=== PATIENT | female | born 1965 | race Caucasian/White ===

== ENCOUNTER → 2021-08-14 14:31 | Outpatient (CLI) | payer OTHER, SELFPAY | PROVIDERS: PCP Family Medicine; Referring Provider Dermatology MOHS-Micrographic Surgery; Visit Provider Family Medicine | DX: T81.89XA Other complications of procedures, not elsewhere classified, initial encounter (principal); S81.801A Unspecified open wound, right lower leg, initial encounter; E11.628 Type 2 diabetes mellitus with other skin complications; Z79.84 Long term (current) use of oral hypoglycemic drugs; Z85.828 Personal history of other malignant neoplasm of skin | CPT/HCPCS: 11042; 93922; 99204; 99213 ==

== ENCOUNTER → 2021-08-21 14:37 | Outpatient (CLI) | payer OTHER, SELFPAY | PROVIDERS: PCP Family Medicine; Referring Provider Family Medicine; Visit Provider Family Medicine | DX: T81.89XA Other complications of procedures, not elsewhere classified, initial encounter (principal); S81.801A Unspecified open wound, right lower leg, initial encounter; E11.628 Type 2 diabetes mellitus with other skin complications; Z85.828 Personal history of other malignant neoplasm of skin | CPT/HCPCS: 11042 ==

== ENCOUNTER → 2021-08-28 14:40 | Outpatient (CLI) | payer OTHER, SELFPAY | PROVIDERS: PCP Family Medicine; Referring Provider Family Medicine; Visit Provider Family Medicine | DX: T81.89XA Other complications of procedures, not elsewhere classified, initial encounter (principal); S81.801A Unspecified open wound, right lower leg, initial encounter; E11.628 Type 2 diabetes mellitus with other skin complications; Z85.828 Personal history of other malignant neoplasm of skin; Z79.84 Long term (current) use of oral hypoglycemic drugs | CPT/HCPCS: 11042 ==

== ENCOUNTER → 2021-09-04 15:45 | Outpatient (CLI) | payer OTHER, SELFPAY | PROVIDERS: PCP Family Medicine; Referring Provider Family Medicine; Visit Provider Family Medicine | DX: T81.89XA Other complications of procedures, not elsewhere classified, initial encounter (principal); S81.801A Unspecified open wound, right lower leg, initial encounter; E11.628 Type 2 diabetes mellitus with other skin complications; Z85.828 Personal history of other malignant neoplasm of skin | CPT/HCPCS: 11042 ==

== ENCOUNTER → 2021-09-11 14:47 | Outpatient (CLI) | payer OTHER, SELFPAY | PROVIDERS: PCP Family Medicine; Referring Provider Family Medicine; Visit Provider Family Medicine | DX: T81.89XA Other complications of procedures, not elsewhere classified, initial encounter (principal); S81.801A Unspecified open wound, right lower leg, initial encounter; E11.628 Type 2 diabetes mellitus with other skin complications; Z85.828 Personal history of other malignant neoplasm of skin | CPT/HCPCS: 99212; 99213 ==

== ENCOUNTER → 2021-09-18 11:00 | Outpatient (CLI) | payer OTHER, SELFPAY | PROVIDERS: PCP Family Medicine; Referring Provider Family Medicine; Visit Provider Family Medicine | DX: T81.89XA Other complications of procedures, not elsewhere classified, initial encounter (principal); S81.801A Unspecified open wound, right lower leg, initial encounter; L92.8 Other granulomatous disorders of the skin and subcutaneous tissue; E11.628 Type 2 diabetes mellitus with other skin complications; Z85.828 Personal history of other malignant neoplasm of skin | CPT/HCPCS: 17250 ==

== ENCOUNTER → 2021-10-02 15:46 | Outpatient (CLI) | payer OTHER, SELFPAY | PROVIDERS: PCP Family Medicine; Referring Provider Family Medicine; Visit Provider Family Medicine | DX: T81.89XA Other complications of procedures, not elsewhere classified, initial encounter (principal); S81.801A Unspecified open wound, right lower leg, initial encounter; E11.628 Type 2 diabetes mellitus with other skin complications; Z85.828 Personal history of other malignant neoplasm of skin | CPT/HCPCS: 99212 ==

== ENCOUNTER → 2021-10-09 14:42 | Outpatient (CLI) | payer OTHER, SELFPAY | PROVIDERS: PCP Family Medicine; Referring Provider Family Medicine; Visit Provider Family Medicine | DX: T81.89XA Other complications of procedures, not elsewhere classified, initial encounter (principal); S81.801A Unspecified open wound, right lower leg, initial encounter; L92.8 Other granulomatous disorders of the skin and subcutaneous tissue; E11.628 Type 2 diabetes mellitus with other skin complications; Z85.828 Personal history of other malignant neoplasm of skin | CPT/HCPCS: 11042; 99212 ==

== ENCOUNTER → 2021-10-23 15:45 | Outpatient (CLI) | payer OTHER, SELFPAY | PROVIDERS: PCP Family Medicine; Referring Provider Family Medicine; Visit Provider Family Medicine | DX: T81.89XA Other complications of procedures, not elsewhere classified, initial encounter (principal); S81.801A Unspecified open wound, right lower leg, initial encounter; E11.628 Type 2 diabetes mellitus with other skin complications; Z85.828 Personal history of other malignant neoplasm of skin | CPT/HCPCS: 11042 ==

== ENCOUNTER → 2021-11-05 14:38 | Outpatient (CLI) | payer OTHER, SELFPAY | PROVIDERS: PCP Family Medicine; Referring Provider Family Medicine; Visit Provider Family Medicine | DX: Z09 Encounter for follow-up examination after completed treatment for conditions other than malignant neoplasm (principal); E11.9 Type 2 diabetes mellitus without complications; Z87.2 Personal history of diseases of the skin and subcutaneous tissue; Z85.828 Personal history of other malignant neoplasm of skin | CPT/HCPCS: 99212; 99213 ==